=== PATIENT | male | born 1930 | race Caucasian/White ===

== ENCOUNTER 2019-08-24 09:44 | Inpatient (IN) ==
[2019-08-24] MEDS ORDERED: 0.9 % Sodium Chloride 1,000 ML ONE (10:05)
[2019-08-24] MEDS: 0.9 % Sodium Chloride 1,000 ML IV ONE ×2 (10:08→10:52)
[2019-08-24 10:21] LABS: Hematocrit 44.4 % (37.5-50.1); Hemoglobin 13.2 g/dL (12.9-16.9); Mean Corpuscular HGB Conc 29.7 g/dL (31.6-35.5); Mean Corpuscular Hemoglobin 28.6 pg (28.0-33.3); Mean Corpuscular Volume 96.1 fL (83.0-100.0); Platelet Count 204 K/mcL (140-400); Red Blood Count 4.62 M/mcL (4.19-5.50); Red Cell Distribution Width 17.2 % (11.5-14.5); White Blood Count 11.6 K/mcL (4.3-11.1)
[2019-08-24 10:22] LABS: INR 1.1; Prothrombin Time 12.2 Seconds (9.4-12.1)
[2019-08-24] MEDS ORDERED: Azithromycin 500 MG in 0.9 % Sodium Chloride 250 ML IVPB ONE (10:22)
[2019-08-24] MEDS ORDERED: cefTRIAXone 1,000 MG in Water for inj. (sterile) 10 ML IVP ONE (10:22)
[2019-08-24 10:25] LABS: Activated Partial Thrombo Time 23.8 Seconds (26.0-36.0)
[2019-08-24 10:37] LABS: Calcium 9.7 mg/dL (8.6-10.3); Potassium 4.4 mEq/L (3.5-5.1)
[2019-08-24 10:47] LABS: Troponin I 0.05 ng/mL (< 0.04)
[2019-08-24 10:55] LABS: Bilirubin,Urine Negative (Negative); Blood,Urine Negative (Negative); Clarity,Urine Clear (Clear); Color,Urine Yellow (Yellow); Glucose,Urine (UA) Normal (Normal); Ketones,Urine Negative (Negative); Leukocyte Esterase,Urine Small (Negative); Nitrite,Urine Negative (Negative); PH,Urine 7.5 pH Units (5.0-8.0); Protein,Urine 30 mg/dL (Neg-Trace); Specific Gravity,Urine 1.017 (1.010-1.025)
[2019-08-24 10:57] LABS: Bacteria,Urine None Seen per hpf (None-Few); Hyaline Casts,Urine None Seen per lpf (None-Few); RBC,Urine 0-3 per hpf (0-3); Squamous Epithelial Cell,Urine Few per lpf (None-Few); WBC,Urine 15-30 per hpf (0-3)
[2019-08-24] MEDS ORDERED: Metoprolol XL (24 HR) Succ 25 MG TAB.ER.24H PO ONE (11:20)
[2019-08-24] MEDS ORDERED: Naloxone 0.4 MG/ML INJ IVP PRN (11:59)
[2019-08-24] MEDS ORDERED: Ipratropium/Albuterol Neb 3 ML IH PRN (12:07)
[2019-08-24] MEDS ORDERED: *HR* Metoprolol 5 MG/5 ML VIAL IVP ONE (12:37)
[2019-08-24] MEDS ORDERED: 0.9 % Sodium Chloride 1,000 ML IV ONE (12:38)
[2019-08-24] MEDS: Levalbuterol Neb 1.25 MG/3 ML IH SCH ×3 (13:34→21:27)
[2019-08-24 13:40] LABS: ABG Base Excess 4 mEq/L (-2 to 3); ABG HCO3 35 mEq/L (21-27); ABG Oxygen Saturation 91 % (95-98); ABG PCO2 84 mmHg (35-45); ABG PH 7.23 pH Units (7.32-7.45); ABG PO2 77 mmHg (85-104); ABG TCO2 37 mEq/L (20-26)
[2019-08-24] MEDS: 0.9 % Sodium Chloride 1,000 ML IVC SCH ×2 (15:13→23:37)
[2019-08-24 15:36] LABS: Thyroid Stimulating Hormone 11.376 mcIU/mL (0.340-5.600)
[2019-08-24 17:07] LABS: ABG Base Excess 10 mEq/L (-2 to 3); ABG Chloride 101 mEq/L (98-107); ABG Glucose 96 mg/dL (60-95); ABG HCO3 39 mEq/L (21-27); ABG Ionized Calcium 1.18 mmol/L (1.15-1.35); ABG Oxygen Saturation 97 % (95-98); ABG PCO2 69 mmHg (35-45); ABG PH 7.35 pH Units (7.32-7.45); ABG PO2 100 mmHg (85-104); ABG TCO2 41 mEq/L (20-26)
[2019-08-24] MEDS: MethylPREDNISolone 40 MG/ML VIAL IVP SCH ×2 (18:10→22:13)
[2019-08-24] MEDS: *HR* Heparin 5,000 UNIT/ML VIAL SQ SCH (18:10)
[2019-08-24] MEDS ORDERED: 0.9 % Sodium Chloride 500 ML IVC ONE (23:06)
[2019-08-24] MEDS ORDERED: *HR* Dextrose 50 % in Water (Syg) 50 ML SYRINGE IVP PRN (23:32)
[2019-08-24] MEDS ORDERED: D5% in Water 1,000 ML IVC PRN (23:32)
[2019-08-24] MEDS ORDERED: Dextrose Gel 15 GM/37.5 ML TUBE PO PRN ×2 (23:32)
[2019-08-25] MEDS ORDERED: 0.9 % Sodium Chloride 500 ML IVC ONE (00:44)
[2019-08-25 02:15] LABS: Basophils % 0.2 %; Hematocrit 39.2 % (37.5-50.1); Hemoglobin 11.5 g/dL (12.9-16.9); Immature Granulocytes % 0.7 % (0-4); Lymphocytes # 0.4 K/mcL (0.6-4.6); Lymphocytes % 1.9 %; Mean Corpuscular HGB Conc 29.3 g/dL (31.6-35.5); Mean Corpuscular Hemoglobin 28.5 pg (28.0-33.3); Mean Platelet Volume 11.4 fL (9.4-12.4); Monocytes # 0.2 K/mcL (0.0-1.3); Neutrophils # 18.4 K/mcL (1.6-8.9); Platelet Count 148 K/mcL (140-400); Red Blood Count 4.04 M/mcL (4.19-5.50); Red Cell Distribution Width 17.3 % (11.5-14.5); Segmented Neutrophils % 96.2 %; White Blood Count 19.1 K/mcL (4.3-11.1)
[2019-08-25] MEDS: *HR* Metoprolol 5 MG/5 ML VIAL IVP PRN (02:30)
[2019-08-25 02:32] LABS: Alanine Aminotransferase 12 Units/L (7-52); Albumin/Globulin Ratio 1.4 (1.1-2.2); Alkaline Phosphatase 56 Units/L (34-104); Aspartate Amino Transferase 19 Units/L (13-39); BUN/Creatinine Ratio 24 (6-26); Bilirubin,Total 1.2 mg/dL (0.3-1.0); Blood Urea Nitrogen 27 mg/dL (8-23); Calcium 8.2 mg/dL (8.6-10.3); Carbon Dioxide 32 mEq/L (23-29); Chloride 104 mEq/L (98-107); Globulin 2.2 g/dL (2.4-3.5); Glucose 87 mg/dL (70-105); Magnesium 2.1 mg/dL (1.6-2.6); Osmolality,Calculated 302 (280-300); Sodium 144 mEq/L (136-145); Total Protein 5.2 g/dL (6.4-8.9); eGFR For African Americans > 60 (> 60); eGFR For Non-African Americans > 60 (> 60)
[2019-08-25 02:47] LABS: Platelet Estimate Normal (Normal)
[2019-08-25 02:55] LABS: Adenovirus Not Detected (Not Detect); Bordetella Pertussis Not Detected (Not Detect); Chlamydophila pneumoniae Not Detected (Not Detect); Coronavirus 229E Not Detected (Not Detect); Coronavirus HKU1 Not Detected (Not Detect); Coronavirus NL63 Not Detected (Not Detect); Coronavirus OC43 Not Detected (Not Detect); Human Metapneumovirus Not Detected (Not Detect); Human Rhinovirus/Enterovirus Not Detected (Not Detect); Influenza A Subtype 2009 H1 Not Detected (Not Detect); Influenza B Not Detected (Not Detect); Mycoplasma pneumoniae Not Detected (Not Detect); Parainfluenza Virus 1 Not Detected (Not Detect); Parainfluenza Virus 2 Not Detected (Not Detect); Parainfluenza Virus 3 Not Detected (Not Detect); Parainfluenza Virus 4 Not Detected (Not Detect); Respiratory Syncytial Virus Not Detected (Not Detect)
[2019-08-25] MEDS: Levalbuterol Neb 1.25 MG/3 ML IH SCH ×4 (03:17→22:44)
[2019-08-25] MEDS: MethylPREDNISolone 40 MG/ML VIAL IVP SCH ×3 (05:44→17:38)
[2019-08-25] MEDS: *HR* Heparin 5,000 UNIT/ML VIAL SQ SCH ×2 (05:45→17:38)
[2019-08-25] MEDS: Metoprolol XL (24 HR) Succ 25 MG TAB.ER.24H PO SCH (09:09)
[2019-08-25] MEDS: cefTRIAXone 1,000 MG in Water for inj. (sterile) 10 ML IVP SCH (09:10)
[2019-08-25] MEDS: Azithromycin 500 MG in 0.9 % Sodium Chloride 250 ML IVPB SCH (09:10)
[2019-08-25] MEDS ORDERED: 0.9 % Sodium Chloride 500 ML IV ONE (15:58)
[2019-08-26 01:55] LABS: Hemoglobin 10.6 g/dL (12.9-16.9); Mean Corpuscular HGB Conc 29.4 g/dL (31.6-35.5); Mean Corpuscular Hemoglobin 28.6 pg (28.0-33.3); Mean Corpuscular Volume 97.3 fL (83.0-100.0); Mean Platelet Volume 11.9 fL (9.4-12.4); Platelet Count 152 K/mcL (140-400); Red Cell Distribution Width 17.6 % (11.5-14.5); White Blood Count 17.7 K/mcL (4.3-11.1)
[2019-08-26 02:13] LABS: BUN/Creatinine Ratio 33 (6-26); Blood Urea Nitrogen 41 mg/dL (8-23); Calcium 8.7 mg/dL (8.6-10.3); Carbon Dioxide 30 mEq/L (23-29); Chloride 104 mEq/L (98-107); Glucose 156 mg/dL (70-105); Magnesium 2.2 mg/dL (1.6-2.6); Osmolality,Calculated 305 (280-300); Potassium 4.1 mEq/L (3.5-5.1); Sodium 141 mEq/L (136-145); eGFR For African Americans > 60 (> 60); eGFR For Non-African Americans 55 (> 60)
[2019-08-26] MEDS: Levalbuterol Neb 1.25 MG/3 ML IH SCH (03:29)
[2019-08-26] MEDS: *HR* Heparin 5,000 UNIT/ML VIAL SQ SCH ×2 (06:19→17:22)
[2019-08-26] MEDS: MethylPREDNISolone 40 MG/ML VIAL IVP SCH (06:19)
[2019-08-26] MEDS: Azithromycin 500 MG in 0.9 % Sodium Chloride 250 ML IVPB SCH (08:59)
[2019-08-26] MEDS: cefTRIAXone 1,000 MG in Water for inj. (sterile) 10 ML IVP SCH (08:59)
[2019-08-26] MEDS: Metoprolol XL (24 HR) Succ 25 MG TAB.ER.24H PO SCH (09:00)
[2019-08-26] MEDS ORDERED: Levalbuterol Neb 1.25 MG/3 ML IH PRN (09:28)
[2019-08-26] MEDS ORDERED: Furosemide 20 MG/2 ML VIAL IVP ONE (09:29)
[2019-08-26] MEDS: MetroNIDAZOLE 500 MG/100 ML 500 MG/100 ML BAG IVPB SCH ×2 (10:19→17:22)
[2019-08-27 01:11] LABS: Hematocrit 38.8 % (37.5-50.1); Hemoglobin 11.4 g/dL (12.9-16.9); Mean Corpuscular HGB Conc 29.4 g/dL (31.6-35.5); Mean Corpuscular Hemoglobin 29.5 pg (28.0-33.3); Mean Corpuscular Volume 100.5 fL (83.0-100.0); Mean Platelet Volume 11.9 fL (9.4-12.4); Platelet Count 153 K/mcL (140-400); Red Blood Count 3.86 M/mcL (4.19-5.50); Red Cell Distribution Width 17.9 % (11.5-14.5); White Blood Count 18.8 K/mcL (4.3-11.1)
[2019-08-27 01:29] LABS: Albumin 3.4 g/dL (3.5-5.7); Albumin/Globulin Ratio 1.3 (1.1-2.2); Bilirubin,Total 0.8 mg/dL (0.3-1.0); Calcium 9.2 mg/dL (8.6-10.3); Globulin 2.7 g/dL (2.4-3.5); Potassium 4.7 mEq/L (3.5-5.1); Total Protein 6.1 g/dL (6.4-8.9)
[2019-08-27] MEDS: MetroNIDAZOLE 500 MG/100 ML 500 MG/100 ML BAG IVPB SCH ×3 (02:04→17:02)
[2019-08-27] MEDS: *HR* Metoprolol 5 MG/5 ML VIAL IVP PRN ×2 (02:05→05:01)
[2019-08-27] MEDS: *HR* Heparin 5,000 UNIT/ML VIAL SQ SCH ×2 (05:01→17:01)
[2019-08-27] MEDS: predniSONE 20 MG TABLET PO SCH (09:07)
[2019-08-27] MEDS: cefTRIAXone 1,000 MG in Water for inj. (sterile) 10 ML IVP SCH (09:07)
[2019-08-27] MEDS ORDERED: Aminoglycoside Consult 1 EACH MC ONE (09:24)
[2019-08-28] MEDS: MetroNIDAZOLE 500 MG/100 ML 500 MG/100 ML BAG IVPB SCH ×3 (01:09→16:52)
[2019-08-28] MEDS: *HR* Heparin 5,000 UNIT/ML VIAL SQ SCH ×2 (05:03→16:54)
[2019-08-28 06:28] LABS: Hemoglobin 10.6 g/dL (12.9-16.9)
[2019-08-28 06:30] LABS: Basophils % 0.2 %; Hematocrit 35.7 % (37.5-50.1); Immature Granulocytes % 0.5 % (0-4); Lymphocytes # 0.5 K/mcL (0.6-4.6); Lymphocytes % 3.9 %; Mean Corpuscular HGB Conc 29.7 g/dL (31.6-35.5); Mean Corpuscular Hemoglobin 29.5 pg (28.0-33.3); Mean Corpuscular Volume 99.4 fL (83.0-100.0); Mean Platelet Volume 12.1 fL (9.4-12.4); Monocytes # 0.4 K/mcL (0.0-1.3); Monocytes % 3.5 %; Platelet Count 127 K/mcL (140-400); Red Blood Count 3.59 M/mcL (4.19-5.50); Red Cell Distribution Width 17.8 % (11.5-14.5); Segmented Neutrophils % 91.9 %; White Blood Count 11.9 K/mcL (4.3-11.1)
[2019-08-28 06:34] LABS: BUN/Creatinine Ratio 43 (6-26); Blood Urea Nitrogen 54 mg/dL (8-23); Calcium 8.8 mg/dL (8.6-10.3); Carbon Dioxide 31 mEq/L (23-29); Chloride 107 mEq/L (98-107); Glucose 122 mg/dL (70-105); Osmolality,Calculated 310 (280-300); Sodium 142 mEq/L (136-145); eGFR For African Americans > 60 (> 60); eGFR For Non-African Americans 55 (> 60)
[2019-08-28 06:47] LABS: Neutrophils # 10.9 K/mcL (1.6-8.9)
[2019-08-28 07:15] LABS: Hypochromasia Present (Not Present); Platelet Estimate Normal (Normal)
[2019-08-28] MEDS: predniSONE 20 MG TABLET PO SCH (08:48)
[2019-08-28] MEDS: cefTRIAXone 1,000 MG in Water for inj. (sterile) 10 ML IVP SCH (08:48)
[2019-08-28] MEDS ORDERED: DilTIAZem CD (24hr) 120 MG CAP.ER.24H PO SCH (09:00)
[2019-08-28] MEDS ORDERED: *HR* Metoprolol 5 MG/5 ML VIAL IVP ONE (22:44)
[2019-08-29] MEDS ORDERED: *HR* Metoprolol 5 MG/5 ML VIAL IVP ONE (00:49)
[2019-08-29] MEDS ORDERED: 0.9 % Sodium Chloride 250 ML IVC ONE (00:49)
[2019-08-29] MEDS: MetroNIDAZOLE 500 MG/100 ML 500 MG/100 ML BAG IVPB SCH ×3 (01:11→17:51)
[2019-08-29] MEDS ORDERED: *HR* Metoprolol 5 MG/5 ML VIAL IVP PRN (01:22)
[2019-08-29] MEDS ORDERED: 0.9 % Sodium Chloride 250 ML IVC PRN (01:26)
[2019-08-29 01:49] LABS: Basophils % 0.2 %; Hematocrit 38.1 % (37.5-50.1); Hemoglobin 11.2 g/dL (12.9-16.9); Immature Granulocytes % 1.1 % (0-4); Immature Platelets 8.7 % (1.1-6.1); Lymphocytes # 0.3 K/mcL (0.6-4.6); Lymphocytes % 2.9 %; Mean Corpuscular HGB Conc 29.4 g/dL (31.6-35.5); Mean Corpuscular Hemoglobin 28.5 pg (28.0-33.3); Mean Corpuscular Volume 96.9 fL (83.0-100.0); Monocytes # 0.3 K/mcL (0.0-1.3); Monocytes % 2.9 %; Neutrophils # 8.9 K/mcL (1.6-8.9); Nucleated Red Blood Cells 0.7 /100 WBC (0); Platelet Count 136 K/mcL (140-400); Red Blood Count 3.93 M/mcL (4.19-5.50); Red Cell Distribution Width 17.3 % (11.5-14.5); Segmented Neutrophils % 92.9 %; White Blood Count 9.6 K/mcL (4.3-11.1)
[2019-08-29 01:51] LABS: BUN/Creatinine Ratio 46 (6-26); Blood Urea Nitrogen 49 mg/dL (8-23); Calcium 9.1 mg/dL (8.6-10.3); Carbon Dioxide 33 mEq/L (23-29); Chloride 105 mEq/L (98-107); Glucose 129 mg/dL (70-105); Osmolality,Calculated 309 (280-300); Potassium 4.6 mEq/L (3.5-5.1); Sodium 142 mEq/L (136-145); eGFR For African Americans > 60 (> 60); eGFR For Non-African Americans > 60 (> 60)
[2019-08-29] MEDS: *HR* Heparin 5,000 UNIT/ML VIAL SQ SCH (06:07)
[2019-08-29] MEDS ORDERED: 0.9 % Sodium Chloride 1,000 ML IVC ONE (09:12)
[2019-08-29] MEDS ORDERED: 0.9 % Sodium Chloride 1,000 ML ONE (09:15)
[2019-08-29] MEDS: DilTIAZem CD (24hr) 240 MG CAP.ER.24H PO SCH (09:23)
[2019-08-29] MEDS: predniSONE 20 MG TABLET PO SCH (09:23)
[2019-08-29] MEDS: cefTRIAXone 1,000 MG in Water for inj. (sterile) 10 ML IVP SCH (09:23)
[2019-08-29] MEDS ORDERED: Metoprolol XL (24 HR) Succ 25 MG TAB.ER.24H PO ONE (14:43)
[2019-08-29] MEDS: *HR* Rivaroxaban 15 MG TABLET PO SCH (17:51)
[2019-08-30 02:20] LABS: Hematocrit 35.5 % (37.5-50.1); Hemoglobin 10.5 g/dL (12.9-16.9); Lymphocytes # 0.2 K/mcL (0.6-4.6); Mean Corpuscular HGB Conc 29.6 g/dL (31.6-35.5); Mean Corpuscular Hemoglobin 28.9 pg (28.0-33.3); Mean Corpuscular Volume 97.8 fL (83.0-100.0); Mean Platelet Volume 11.3 fL (9.4-12.4); Monocytes # 0.3 K/mcL (0.0-1.3); Monocytes % 3.2 %; Neutrophils # 7.5 K/mcL (1.6-8.9); Nucleated Red Blood Cells 0.4 /100 WBC (0); Platelet Count 144 K/mcL (140-400); Red Blood Count 3.63 M/mcL (4.19-5.50); Red Cell Distribution Width 17.5 % (11.5-14.5); Segmented Neutrophils % 92.8 %; White Blood Count 8.1 K/mcL (4.3-11.1)
[2019-08-30] MEDS: MetroNIDAZOLE 500 MG/100 ML 500 MG/100 ML BAG IVPB SCH ×2 (02:20→09:02)
[2019-08-30 02:39] LABS: BUN/Creatinine Ratio 43 (6-26); Blood Urea Nitrogen 37 mg/dL (8-23); Calcium 8.9 mg/dL (8.6-10.3); Carbon Dioxide 35 mEq/L (23-29); Chloride 105 mEq/L (98-107); Glucose 110 mg/dL (70-105); Osmolality,Calculated 307 (280-300); Sodium 144 mEq/L (136-145); eGFR For African Americans > 60 (> 60); eGFR For Non-African Americans > 60 (> 60)
[2019-08-30] MEDS: DilTIAZem CD (24hr) 240 MG CAP.ER.24H PO SCH (09:00)
[2019-08-30] MEDS: cefTRIAXone 1,000 MG in Water for inj. (sterile) 10 ML IVP SCH (09:00)
[2019-08-30] MEDS: predniSONE 20 MG TABLET PO SCH (09:00)
[2019-08-30] MEDS: Metoprolol XL (24 HR) Succ 25 MG TAB.ER.24H PO SCH (09:00)
[2019-08-30] MEDS: *HR* Rivaroxaban 15 MG TABLET PO SCH (17:50)
[2019-08-30] MEDS: metroNIDAZOLE 500 MG TABLET PO SCH (21:18)
[2019-08-31 01:11] LABS: Hemoglobin 10.5 g/dL (12.9-16.9)
[2019-08-31 01:12] LABS: Hematocrit 35.1 % (37.5-50.1); Mean Corpuscular HGB Conc 29.9 g/dL (31.6-35.5); Mean Corpuscular Hemoglobin 29.3 pg (28.0-33.3); Mean Platelet Volume 11.1 fL (9.4-12.4); Platelet Count 172 K/mcL (140-400); Red Blood Count 3.58 M/mcL (4.19-5.50); Red Cell Distribution Width 17.2 % (11.5-14.5); White Blood Count 9.4 K/mcL (4.3-11.1)
[2019-08-31 01:50] LABS: BUN/Creatinine Ratio 46 (6-26); Blood Urea Nitrogen 37 mg/dL (8-23); Carbon Dioxide 33 mEq/L (23-29); Chloride 107 mEq/L (98-107); Glucose 130 mg/dL (70-105); Osmolality,Calculated 304 (280-300); Sodium 142 mEq/L (136-145); eGFR For African Americans > 60 (> 60); eGFR For Non-African Americans > 60 (> 60)
[2019-08-31 06:32] VITALS: BP 127/77
[2019-08-31] MEDS ORDERED: Cefdinir 300 MG CAPSULE PO SCH (09:00)
[2019-08-31] MEDS: Metoprolol XL (24 HR) Succ 25 MG TAB.ER.24H PO SCH (09:50)
[2019-08-31] MEDS: predniSONE 20 MG TABLET PO SCH (09:50)
[2019-08-31] MEDS: DilTIAZem CD (24hr) 240 MG CAP.ER.24H PO SCH (09:50)
[2019-08-31] MEDS: metroNIDAZOLE 500 MG TABLET PO SCH (09:51)
== END 2019-08-31 14:19 | disposition home health service (06) | DRG 871 ==
LOC: EMEROOARM 09:44 → 2NNU 09:44 → SUATTDRO 15:40 → MERGE 15:40 → 2NNU 16:20 → SUATTDRO 08-26 09:30 → 2NENU 08-28 17:54
PROVIDERS: ADMIT Internal Medicine; ATTEND Internal Medicine

== ENCOUNTER 2019-11-29 18:33 | Inpatient (IN) ==
[~2019-11-29 18:33] MED LIST: *HR* Etomidate 20 MG/10 ML AMPUL IVP ONE
[2019-11-29 19:14] LABS: INR 1.1
[2019-11-29 19:14] LABS: Bilirubin,Urine Negative (Negative); Blood,Urine Negative (Negative); Clarity,Urine Cloudy (Clear); Color,Urine Yellow (Yellow); Glucose,Urine (UA) Normal (Normal); Ketones,Urine Negative (Negative); Leukocyte Esterase,Urine Negative (Negative); Nitrite,Urine Negative (Negative); Protein,Urine Trace mg/dL (Neg-Trace); Specific Gravity,Urine 1.022 (1.010-1.025)
[2019-11-29 19:16] LABS: Activated Partial Thrombo Time 31.2 Seconds (26.0-36.0); Immature Granulocytes % 0.5 % (0-4)
[2019-11-29 19:18] LABS: Basophils % 0.4 %; Eosinophils % 0.3 %; Hematocrit 35.9 % (37.5-50.1); Hemoglobin 10.2 g/dL (12.9-16.9); Lymphocytes # 0.9 K/mcL (0.6-4.6); Lymphocytes % 8.1 %; Mean Corpuscular HGB Conc 28.4 g/dL (31.6-35.5); Mean Corpuscular Hemoglobin 30.4 pg (28.0-33.3); Mean Corpuscular Volume 106.8 fL (83.0-100.0); Mean Platelet Volume 10.4 fL (9.4-12.4); Monocytes # 0.8 K/mcL (0.0-1.3); Monocytes % 7.3 %; Neutrophils # 9.1 K/mcL (1.6-8.9); Platelet Count 252 K/mcL (140-400); Red Blood Count 3.36 M/mcL (4.19-5.50); Red Cell Distribution Width 14.7 % (11.5-14.5); Segmented Neutrophils % 83.4 %; White Blood Count 10.9 K/mcL (4.3-11.1)
[2019-11-29 19:21] LABS: Bacteria,Urine None Seen per hpf (None-Few); Hyaline Casts,Urine None Seen per lpf (None-Few); RBC,Urine 0-3 per hpf (0-3); Squamous Epithelial Cell,Urine Many per lpf (None-Few); WBC,Urine 0-3 per hpf (0-3)
[2019-11-29 19:24] LABS: ABG Base Excess 25 mEq/L (-2 to 3); ABG HCO3 58 mEq/L (21-27); ABG Oxygen Saturation 98 % (95-98); ABG PCO2 122 mmHg (35-45); ABG PH 7.29 pH Units (7.32-7.45); ABG PO2 121 mmHg (85-104); ABG TCO2 > 50 mEq/L (20-26)
[2019-11-29 19:34] LABS: Platelet Estimate Normal (Normal)
[2019-11-29] MEDS ORDERED: Ipratropium/Albuterol Neb 3 ML IH ONE (19:36)
[2019-11-29] MEDS ORDERED: methylPREDNISolone 125 MG/2 ML VIAL IVP ONE (19:37)
[2019-11-29] MEDS ORDERED: 0.9 % Sodium Chloride 1,000 ML ONE (20:01)
[2019-11-29] MEDS ORDERED: Dexmedetomidine HCl 400 MCG/100 ML MLS IVC ONE (20:01)
[2019-11-29] MEDS: Dexmedetomidine HCl 400 MCG/100 ML MLS IVC SCH (20:05)
[2019-11-29] MEDS: FentaNYL (PF) 1,000 MCG/100 ML IV.SOLN IVC SCH (20:10)
[2019-11-29] MEDS ORDERED: *HR* FentaNYL (PF) 1,000 MCG/20 ML VIAL ONE (20:11)
[2019-11-29] MEDS ORDERED: 0.9 % Sodium Chloride 1,000 ML IVC ONE (20:15)
[2019-11-29 20:21] LABS: BUN/Creatinine Ratio 37 (6-26); Blood Urea Nitrogen 25 mg/dL (8-23); Calcium 9.8 mg/dL (8.6-10.3); Carbon Dioxide > 45 mEq/L (23-29); Chloride 89 mEq/L (98-107); Glucose 118 mg/dL (70-105); Osmolality,Calculated 301 (280-300); Potassium 4.8 mEq/L (3.5-5.1); Sodium 143 mEq/L (136-145); Troponin I 0.05 ng/mL (< 0.04); eGFR For African Americans > 60 (> 60); eGFR For Non-African Americans > 60 (> 60)
[2019-11-29 21:12] LABS: ABG Base Excess 23 mEq/L (-2 to 3); ABG HCO3 48 mEq/L (21-27); ABG Oxygen Saturation 100 % (95-98); ABG PCO2 49 mmHg (35-45); ABG PO2 213 mmHg (85-104); ABG TCO2 50 mEq/L (20-26); Blood Gas Modality AF; Blood Gas VT 450 cc
[2019-11-29] MEDS ORDERED: Naloxone 0.4 MG/ML INJ IVP PRN (21:44)
[2019-11-29] MEDS ORDERED: Lidocaine Jelly 11 ml Syringe MM ONE (21:45)
[2019-11-29] MEDS ORDERED: 0.9 % Sodium Chloride 1,000 ML IVC SCH (21:45)
[2019-11-29] MEDS ORDERED: *HR* Heparin 5,000 UNIT/ML VIAL IVP ONE (21:48)
[2019-11-29] MEDS ORDERED: *HR* Heparin 5,000 UNIT/ML VIAL IVP PRN ×2 (21:48)
[2019-11-29] MEDS ORDERED: Heparin 25,000 UNIT/250 ML D5W 25,000 UNIT/250 ML IV.SOLN IVC SCH (22:00)
[2019-11-29] MEDS ORDERED: Isovue-370 500 ML BOTTLE IVP ONE (22:11)
[2019-11-29 22:23] LABS: Mean Platelet Volume 10.4 fL (9.4-12.4)
[2019-11-29 22:24] LABS: Hematocrit 37.1 % (37.5-50.1); Hemoglobin 10.5 g/dL (12.9-16.9); Mean Corpuscular HGB Conc 28.3 g/dL (31.6-35.5); Mean Corpuscular Hemoglobin 29.9 pg (28.0-33.3); Mean Corpuscular Volume 105.7 fL (83.0-100.0); Platelet Count 237 K/mcL (140-400); Red Blood Count 3.51 M/mcL (4.19-5.50); Red Cell Distribution Width 14.8 % (11.5-14.5); White Blood Count 10.2 K/mcL (4.3-11.1)
[2019-11-29] MEDS ORDERED: Artificial Tears SOLN 15 ML BOTTLE BOTH EYES PRN (22:28)
[2019-11-29] MEDS ORDERED: Vancomycin 500 MG in 0.9 % Sodium Chloride Mini Bag 100 ML IVPB ONE (23:30)
[2019-11-29] MEDS ORDERED: Vancomycin 500 MG in 0.9 % Sodium Chloride 250 ML IVPB SCH (23:45)
[2019-11-29] MEDS: Ipratropium/Albuterol Neb 3 ML IH SCH (23:51)
[2019-11-29] MEDS: methylPREDNISolone 125 MG/2 ML VIAL IVP SCH (23:59)
[2019-11-29] MEDS: Artificial Tears SOLN 15 ML BOTTLE BOTH EYES SCH (23:59)
[2019-11-30] MEDS ORDERED: Cefepime HCl 2,000 MG in 0.9 % Sodium Chloride Mini Bag 100 ML IVPB SCH
[2019-11-30 00:11] LABS: ABG Base Excess 22 mEq/L (-2 to 3); ABG HCO3 49 mEq/L (21-27); ABG Oxygen Saturation 97 % (95-98); ABG PCO2 58 mmHg (35-45); ABG PH 7.53 pH Units (7.32-7.45); ABG PO2 83 mmHg (85-104); ABG TCO2 > 50 mEq/L (20-26); Blood Gas Modality AF; Blood Gas VT 450 cc
[2019-11-30] MEDS: Azithromycin 500 MG in 0.9 % Sodium Chloride 250 ML IVPB SCH ×2 (00:45→23:26)
[2019-11-30 03:13] LABS: Hemoglobin 10.3 g/dL (12.9-16.9)
[2019-11-30 03:14] LABS: Basophils % 0.1 %; Eosinophils % 0.1 %; Hematocrit 36.4 % (37.5-50.1); Immature Granulocytes % 0.6 % (0-4); Lymphocytes # 0.5 K/mcL (0.6-4.6); Lymphocytes % 5.2 %; Mean Corpuscular HGB Conc 28.3 g/dL (31.6-35.5); Mean Corpuscular Hemoglobin 29.6 pg (28.0-33.3); Mean Corpuscular Volume 104.6 fL (83.0-100.0); Mean Platelet Volume 10.4 fL (9.4-12.4); Monocytes # 0.1 K/mcL (0.0-1.3); Monocytes % 1.3 %; Neutrophils # 8.6 K/mcL (1.6-8.9); Platelet Count 228 K/mcL (140-400); Red Blood Count 3.48 M/mcL (4.19-5.50); Red Cell Distribution Width 14.6 % (11.5-14.5); Segmented Neutrophils % 92.7 %; White Blood Count 9.3 K/mcL (4.3-11.1)
[2019-11-30] MEDS: Heparin 25,000 UNIT/250 ML D5W 25,000 UNIT/250 ML IV.SOLN IVC SCH (03:22)
[2019-11-30 03:32] LABS: Platelet Estimate Normal (Normal)
[2019-11-30 03:40] LABS: Alanine Aminotransferase 7 Units/L (7-52); Albumin 3.2 g/dL (3.5-5.7); Albumin/Globulin Ratio 0.9 (1.1-2.2); Alkaline Phosphatase 78 Units/L (34-104); Aspartate Amino Transferase 17 Units/L (13-39); BUN/Creatinine Ratio 40 (6-26); Bilirubin,Total 0.9 mg/dL (0.3-1.0); Blood Urea Nitrogen 24 mg/dL (8-23); Calcium 9.4 mg/dL (8.6-10.3); Carbon Dioxide 41 mEq/L (23-29); Chloride 94 mEq/L (98-107); Globulin 3.4 g/dL (2.4-3.5); Glucose 124 mg/dL (70-105); Osmolality,Calculated 297 (280-300); Potassium 4.2 mEq/L (3.5-5.1); Sodium 141 mEq/L (136-145); Total Protein 6.6 g/dL (6.4-8.9); eGFR For African Americans > 60 (> 60); eGFR For Non-African Americans > 60 (> 60)
[2019-11-30] MEDS: Ipratropium/Albuterol Neb 3 ML IH SCH ×6 (03:47→23:11)
[2019-11-30] MEDS: Artificial Tears SOLN 15 ML BOTTLE BOTH EYES SCH ×6 (03:48→23:27)
[2019-11-30 04:07] LABS: Bilirubin,Urine Negative (Negative); Blood,Urine Large (Negative); Clarity,Urine Turbid (Clear); Color,Urine Yellow (Yellow); Glucose,Urine (UA) Normal (Normal); Ketones,Urine Negative (Negative); Leukocyte Esterase,Urine Negative (Negative); Nitrite,Urine Negative (Negative); PH,Urine 8.5 pH Units (5.0-8.0); Protein,Urine Trace mg/dL (Neg-Trace); Specific Gravity,Urine 1.013 (1.010-1.025); Urobilinogen,Urine Normal (Normal)
[2019-11-30 04:10] LABS: Hyaline Casts,Urine None Seen per lpf (None-Few); RBC,Urine 30-50 per hpf (0-3); Squamous Epithelial Cell,Urine None Seen per lpf (None-Few); WBC,Urine 0-3 per hpf (0-3)
[2019-11-30 04:31] LABS: Bacteria,Urine Moderate per hpf (None-Few)
[2019-11-30 04:41] LABS: ABG Base Excess 18 mEq/L (-2 to 3); ABG HCO3 47 mEq/L (21-27); ABG Oxygen Saturation 95 % (95-98); ABG PCO2 85 mmHg (35-45); ABG PH 7.35 pH Units (7.32-7.45); ABG PO2 87 mmHg (85-104); ABG TCO2 50 mEq/L (20-26); Blood Gas Modality AF; Blood Gas VT 400 cc
[2019-11-30] MEDS: methylPREDNISolone 125 MG/2 ML VIAL IVP SCH (05:09)
[2019-11-30] MEDS ORDERED: Famotidine 20 MG/2 ML VIAL IVP SCH (06:00)
[2019-11-30] MEDS: Chlorhexidine Rinse 15 ML MOUTHWASH MM SCH ×2 (08:12→19:37)
[2019-11-30] MEDS ORDERED: Aminoglycoside Consult 1 EACH MC ONE (08:34)
[2019-11-30] MEDS: Cefepime HCl 2,000 MG in 0.9 % Sodium Chloride Mini Bag 100 ML IVPB SCH ×2 (11:02→23:26)
[2019-11-30] MEDS ORDERED: 0.9 % Sodium Chloride 250 ML IVC ONE (16:53)
[2019-11-30] MEDS: *HR* Metoprolol 5 MG/5 ML VIAL IVP PRN (17:09)
[2019-11-30] MEDS: 0.9 % Sodium Chloride 1,000 ML IVC SCH (17:10)
[2019-11-30] MEDS ORDERED: methylPREDNISolone 125 MG/2 ML VIAL IVP SCH (18:00)
[2019-11-30] MEDS: FentaNYL (PF) 1,000 MCG/100 ML IV.SOLN IVC SCH (19:37)
[2019-12-01 00:58] LABS: Hematocrit 32.1 % (37.5-50.1); Hemoglobin 9.4 g/dL (12.9-16.9); Mean Corpuscular HGB Conc 29.3 g/dL (31.6-35.5); Mean Corpuscular Hemoglobin 30.7 pg (28.0-33.3); Mean Corpuscular Volume 104.9 fL (83.0-100.0); Mean Platelet Volume 10.7 fL (9.4-12.4); Platelet Count 214 K/mcL (140-400); Red Blood Count 3.06 M/mcL (4.19-5.50); Red Cell Distribution Width 15.4 % (11.5-14.5); White Blood Count 11.4 K/mcL (4.3-11.1)
[2019-12-01] MEDS ORDERED: Vancomycin 500 MG in 0.9 % Sodium Chloride Mini Bag 100 ML IVPB SCH (01:00)
[2019-12-01 01:18] LABS: BUN/Creatinine Ratio 44 (6-26); Blood Urea Nitrogen 28 mg/dL (8-23); Carbon Dioxide 38 mEq/L (23-29); Chloride 100 mEq/L (98-107); Glucose 162 mg/dL (70-105); Osmolality,Calculated 309 (280-300); Potassium 3.5 mEq/L (3.5-5.1); Sodium 145 mEq/L (136-145); eGFR For African Americans > 60 (> 60); eGFR For Non-African Americans > 60 (> 60)
[2019-12-01] MEDS: Ipratropium/Albuterol Neb 3 ML IH SCH ×6 (03:42→23:30)
[2019-12-01] MEDS: Dexmedetomidine HCl 400 MCG/100 ML MLS IVC SCH ×2 (04:17→12:09)
[2019-12-01] MEDS: MethylPREDNISolone 40 MG/ML VIAL IVP SCH ×2 (04:17→17:23)
[2019-12-01] MEDS: Artificial Tears SOLN 15 ML BOTTLE BOTH EYES SCH ×5 (04:18→19:47)
[2019-12-01 04:55] LABS: ABG Base Excess 11 mEq/L (-2 to 3); ABG HCO3 38 mEq/L (21-27); ABG Oxygen Saturation 98 % (95-98); ABG PCO2 60 mmHg (35-45); ABG PO2 105 mmHg (85-104); ABG TCO2 40 mEq/L (20-26); Blood Gas Modality ASSIST CONTROL; Blood Gas VT 400 cc
[2019-12-01] MEDS: 0.9 % Sodium Chloride 1,000 ML IVC SCH (06:15)
[2019-12-01] MEDS: Famotidine 20 MG/2 ML VIAL IVP SCH (08:31)
[2019-12-01] MEDS: Chlorhexidine Rinse 15 ML MOUTHWASH MM SCH ×2 (08:31→19:48)
[2019-12-01] MEDS: Heparin 25,000 UNIT/250 ML D5W 25,000 UNIT/250 ML IV.SOLN IVC SCH (08:32)
[2019-12-01] MEDS: DilTIAZem CD (24hr) 180 MG CAP.ER.24H PO SCH (12:06)
[2019-12-01] MEDS: Cefepime HCl 2,000 MG in Water for inj. (sterile) 20 ML IVP SCH ×2 (12:06→23:30)
[2019-12-01] MEDS ORDERED: *HR* Rivaroxaban 15 MG TABLET PO SCH (14:30)
[2019-12-01] MEDS: *HR* Metoprolol 5 MG/5 ML VIAL IVP PRN (14:41)
[2019-12-01] MEDS: FentaNYL (PF) 1,000 MCG/100 ML IV.SOLN IVC SCH (19:47)
[2019-12-01] MEDS: Azithromycin 500 MG in 0.9 % Sodium Chloride 250 ML IVPB SCH (23:29)
[2019-12-02] MEDS: *HR* Metoprolol 5 MG/5 ML VIAL IVP PRN (02:45)
[2019-12-02] MEDS: Ipratropium/Albuterol Neb 3 ML IH SCH ×6 (03:52→23:37)
[2019-12-02 04:44] LABS: Basophils % 0.1 %; Monocytes % 1.8 %
[2019-12-02 04:46] LABS: Hemoglobin 10.9 g/dL (12.9-16.9); Immature Granulocytes % 0.8 % (0-4); Lymphocytes # 0.4 K/mcL (0.6-4.6); Lymphocytes % 1.7 %; Mean Corpuscular HGB Conc 28.7 g/dL (31.6-35.5); Mean Corpuscular Hemoglobin 30.1 pg (28.0-33.3); Mean Platelet Volume 11.4 fL (9.4-12.4); Neutrophils # 23.9 K/mcL (1.6-8.9); Platelet Count 287 K/mcL (140-400); Red Blood Count 3.62 M/mcL (4.19-5.50); Segmented Neutrophils % 95.6 %
[2019-12-02 04:49] LABS: Monocytes # 0.5 K/mcL (0.0-1.3)
[2019-12-02 04:59] LABS: Alanine Aminotransferase 9 Units/L (7-52); Albumin 3.6 g/dL (3.5-5.7); Alkaline Phosphatase 89 Units/L (34-104); Aspartate Amino Transferase 29 Units/L (13-39); BUN/Creatinine Ratio 49 (6-26); Bilirubin,Total 0.6 mg/dL (0.3-1.0); Blood Urea Nitrogen 30 mg/dL (8-23); Calcium 9.5 mg/dL (8.6-10.3); Carbon Dioxide 35 mEq/L (23-29); Chloride 99 mEq/L (98-107); Globulin 3.6 g/dL (2.4-3.5); Glucose 92 mg/dL (70-105); Osmolality,Calculated 304 (280-300); Potassium 3.8 mEq/L (3.5-5.1); Sodium 144 mEq/L (136-145); Total Protein 7.2 g/dL (6.4-8.9); eGFR For African Americans > 60 (> 60); eGFR For Non-African Americans > 60 (> 60)
[2019-12-02] MEDS: MethylPREDNISolone 40 MG/ML VIAL IVP SCH (05:09)
[2019-12-02 05:19] LABS: Platelet Estimate Normal (Normal)
[2019-12-02] MEDS: DilTIAZem CD (24hr) 180 MG CAP.ER.24H PO SCH ×2 (07:40→09:13)
[2019-12-02] MEDS: Famotidine 20 MG/2 ML VIAL IVP SCH (07:40)
[2019-12-02] MEDS: Dexmedetomidine HCl 400 MCG/100 ML MLS IVC SCH (07:41)
[2019-12-02] MEDS ORDERED: Famotidine 20 MG TABLET PO SCH (09:00)
[2019-12-02] MEDS ORDERED: Azithromycin 250 MG TABLET PO SCH (09:00)
[2019-12-02] MEDS ORDERED: DilTIAZem CD (24hr) 180 MG CAP.ER.24H PO SCH (09:00)
[2019-12-02] MEDS ORDERED: Aspirin Enteric Coated 81 MG Tablet PO SCH (09:00)
[2019-12-02] MEDS ORDERED: predniSONE 20 MG TABLET PO SCH (09:00)
[2019-12-02] MEDS ORDERED: Cefdinir 300 MG CAPSULE PO SCH (09:00)
[2019-12-02] MEDS: Famotidine 20 MG TABLET PO SCH ×2 (09:14→16:02)
[2019-12-02] MEDS: Cefdinir 300 MG CAPSULE PO SCH ×2 (09:18→20:22)
[2019-12-02] MEDS: Azithromycin 250 MG TABLET PO SCH (09:18)
[2019-12-02] MEDS: predniSONE 20 MG TABLET PO SCH (09:18)
[2019-12-02] MEDS: Aspirin Enteric Coated 81 MG Tablet PO SCH (09:18)
[2019-12-02] MEDS: *HR* Rivaroxaban 15 MG TABLET PO SCH (16:02)
[2019-12-03] MEDS: Ipratropium/Albuterol Neb 3 ML IH SCH ×6 (03:40→23:44)
[2019-12-03] MEDS: Aspirin Enteric Coated 81 MG Tablet PO SCH (08:31)
[2019-12-03] MEDS: predniSONE 20 MG TABLET PO SCH (08:31)
[2019-12-03] MEDS: Azithromycin 250 MG TABLET PO SCH (08:32)
[2019-12-03] MEDS: DilTIAZem CD (24hr) 180 MG CAP.ER.24H PO SCH (08:32)
[2019-12-03] MEDS: Cefdinir 300 MG CAPSULE PO SCH ×2 (08:32→20:55)
[2019-12-03] MEDS: Famotidine 20 MG TABLET PO SCH ×2 (08:32→16:53)
[2019-12-03 08:49] LABS: Basophils % 0.1 %; Hematocrit 33.2 % (37.5-50.1); Hemoglobin 9.7 g/dL (12.9-16.9); Immature Granulocytes % 0.4 % (0-4); Lymphocytes # 0.4 K/mcL (0.6-4.6); Lymphocytes % 2.5 %; Mean Corpuscular HGB Conc 29.2 g/dL (31.6-35.5); Mean Corpuscular Hemoglobin 30.2 pg (28.0-33.3); Mean Corpuscular Volume 103.4 fL (83.0-100.0); Mean Platelet Volume 10.7 fL (9.4-12.4); Monocytes # 0.7 K/mcL (0.0-1.3); Monocytes % 4.9 %; Neutrophils # 13.9 K/mcL (1.6-8.9); Platelet Count 215 K/mcL (140-400); Red Blood Count 3.21 M/mcL (4.19-5.50); Red Cell Distribution Width 15.9 % (11.5-14.5); Segmented Neutrophils % 92.1 %; White Blood Count 15.1 K/mcL (4.3-11.1)
[2019-12-03 09:05] LABS: BUN/Creatinine Ratio 44 (6-26); Blood Urea Nitrogen 25 mg/dL (8-23); Calcium 9.5 mg/dL (8.6-10.3); Carbon Dioxide 39 mEq/L (23-29); Chloride 100 mEq/L (98-107); Glucose 117 mg/dL (70-105); Magnesium 2.3 mg/dL (1.6-2.6); Osmolality,Calculated 299 (280-300); Potassium 3.4 mEq/L (3.5-5.1); Sodium 142 mEq/L (136-145); eGFR For African Americans > 60 (> 60); eGFR For Non-African Americans > 60 (> 60)
[2019-12-03] MEDS: *HR* Rivaroxaban 15 MG TABLET PO SCH (16:54)
[2019-12-03] MEDS ORDERED: *HR* Metoprolol 5 MG/5 ML VIAL IVP ONE (23:15)
[2019-12-04] MEDS: Ipratropium/Albuterol Neb 3 ML IH SCH ×3 (03:52→10:43)
[2019-12-04 04:20] LABS: Hematocrit 33.2 % (37.5-50.1); Hemoglobin 9.7 g/dL (12.9-16.9); Mean Corpuscular HGB Conc 29.2 g/dL (31.6-35.5); Mean Corpuscular Hemoglobin 30.3 pg (28.0-33.3); Mean Corpuscular Volume 103.8 fL (83.0-100.0); Platelet Count 184 K/mcL (140-400); Red Cell Distribution Width 15.7 % (11.5-14.5); White Blood Count 14.9 K/mcL (4.3-11.1)
[2019-12-04 04:48] LABS: BUN/Creatinine Ratio 45 (6-26); Blood Urea Nitrogen 25 mg/dL (8-23); Carbon Dioxide 34 mEq/L (23-29); Chloride 104 mEq/L (98-107); Glucose 96 mg/dL (70-105); Magnesium 2.3 mg/dL (1.6-2.6); Osmolality,Calculated 296 (280-300); Potassium 5.3 mEq/L (3.5-5.1); Sodium 141 mEq/L (136-145); eGFR For African Americans > 60 (> 60); eGFR For Non-African Americans > 60 (> 60)
[2019-12-04] MEDS: predniSONE 20 MG TABLET PO SCH (09:09)
[2019-12-04] MEDS: Aspirin Enteric Coated 81 MG Tablet PO SCH (09:09)
[2019-12-04] MEDS: DilTIAZem CD (24hr) 180 MG CAP.ER.24H PO SCH (09:09)
[2019-12-04] MEDS: Famotidine 20 MG TABLET PO SCH (09:09)
[2019-12-04] MEDS: Azithromycin 250 MG TABLET PO SCH (09:09)
[2019-12-04] MEDS: Cefdinir 300 MG CAPSULE PO SCH (09:11)
[2019-12-04 10:43] VITALS: BP 136/78
== END 2019-12-04 13:12 | disposition home health service (06) | DRG 208 ==
LOC: EMEROOARM 18:33 → ICNU 21:52 → SUATTDRO 21:52 → ICNU 22:15 → 2ANU 12-02 11:07
PROVIDERS: ADMIT Student in an Organized Health Care Education/Training Program; ATTEND Internal Medicine